=== PATIENT | male | born 1940 | race Two or more races ===

== ENCOUNTER 2022-10-27 12:20 | Emergency (ER) | payer MEDICARE, MEDICAID ==
[~2022-10-27] VITALS: Ht 182.9 cm; Wt 93.2 kg
[2022-10-27 12:32] VITALS: BP 146/88; PULSE 68; RESP 16; TEMP 96.1; O2SAT 95
[2022-10-27] MEDS ORDERED: predniSONE 20 MG TAB PO ONE (12:50)
[2022-10-27] MEDS ORDERED: ALBUTEROL SULFATE/IPRATROPIU 3 ML SOL IH ONE ×2 (12:50→13:50)
--- NOTE | 2022-10-27 12:55 | NUR ---
Pt bibs for cough and sob x 4 days. Pt is has productive spetum, white. Pt is congested. Vss, no ss of acute distress, breathing equal and unlabored, speech clear, on monitor. MD has seen pt. Has pain in chest only when coughing.
--- NOTE | 2022-10-27 13:00 | NUR ---
Covid and flu specimen labeled and walked to lab.
[2022-10-27 13:07] VITALS: PULSE 78; RESP 18; O2SAT 94
[2022-10-27] MEDS ORDERED: PRED20TA5 PO (14:39)
[2022-10-27] MEDS ORDERED: ALBU0.0912 INH (14:39)
[2022-10-27 14:46] VITALS: BP 144/79; PULSE 74; RESP 18; O2SAT 95
--- NOTE | 2022-10-27 14:48 | NUR ---
Patient discharged with v/s stable. Written and verbal after care instructions given and explained. Patient alert, oriented and verbalized understanding of instructions. Ambulatory with steady gait. All questions addressed prior to discharge. ID band removed. Patient advised to follow up with PMD. Rx of PREDNISONE, ALBUTEROL given. Patient educated on indication of medication including possible reaction and side effects. Opportunity to ask questions provided and answered.
== END 2022-10-27 14:46 | disposition home or self-care (01) ==
LOC: MED 12:20
DX: J45.909 Unspecified asthma, uncomplicated (principal); Z20.822 Contact with and (suspected) exposure to COVID-19; E11.9 Type 2 diabetes mellitus without complications; Z79.899 Other long term (current) drug therapy
CPT/HCPCS: 71045; 87426; 87804; 93005; 94640; 99285; J7512; Q0092

== ENCOUNTER 2022-11-25 09:45 | Emergency (ER) | payer MEDICARE, OTHER ==
[~2022-11-25] VITALS: Ht 165.1 cm; Wt 95.3 kg
[~2022-11-25 09:45] MED LIST: ALBU0.0912 INH; PRED20TA5 PO
[2022-11-25 10:11] VITALS: BP 120/85; PULSE 66; RESP 20; TEMP 97.5; O2SAT 96
[2022-11-25] MEDS ORDERED: LID5T TP (11:55)
[2022-11-25] MEDS ORDERED: KETOROLAC 30 MG/ML VIAL IM ONE (11:55)
[2022-11-25] MEDS ORDERED: IBUP-2213 PO (11:55)
== END 2022-11-25 12:25 | disposition home or self-care (01) ==
LOC: MED 09:45
DX: S06.0X0A Concussion without loss of consciousness, initial encounter (principal); E11.9 Type 2 diabetes mellitus without complications; Z79.899 Other long term (current) drug therapy; W20.8XXA Other cause of strike by thrown, projected or falling object, initial encounter; Y93.89 Activity, other specified; Y92.89 Other specified places as the place of occurrence of the external cause; Y99.8 Other external cause status
CPT/HCPCS: 70450; 72125; 96372; 99285; J1885

== ENCOUNTER 2023-04-05 09:57 | Emergency (ER) | payer MEDICARE, OTHER ==
[~2023-04-05] VITALS: Ht 167.6 cm; Wt 90.9 kg
[~2023-04-05 09:57] MED LIST changes: +IBUP-2213 PO; +LID5T TP
[2023-04-05 10:25] VITALS: BP 133/78; PULSE 78; RESP 18; TEMP 98.1; O2SAT 95
[2023-04-05 12:15] VITALS: O2SAT 95
[2023-04-05] MEDS ORDERED: ACETAMINOPHEN 325 MG TAB PO ONE (14:10)
[2023-04-05] MEDS ORDERED: LEVO-481 PO (14:23)
[2023-04-05 14:43] VITALS: BP 130/80; PULSE 88; RESP 18; TEMP 98.1; O2SAT 97
== END 2023-04-05 14:43 | disposition home or self-care (01) ==
LOC: MED 09:57
DX: N45.3 Epididymo-orchitis (principal); E11.9 Type 2 diabetes mellitus without complications; I10 Essential (primary) hypertension; Z98.890 Other specified postprocedural states; Z79.899 Other long term (current) drug therapy; Z79.1 Long term (current) use of non-steroidal anti-inflammatories (NSAID); Z79.2 Long term (current) use of antibiotics
CPT/HCPCS: 76870; 81002; 99284; Q0092